=== PATIENT | male | born 1980 | race African-American/Black ===

== ENCOUNTER 2020-05-28 05:58 | Day surgery (SDC) | payer OTHER ==
[2020-05-26 15:35] VITALS: BMI 31.1
[2020-05-28] MEDS ORDERED: DEXAMETHASONE SOD PHOSPHATE/PF 10 MG/ML SDV ONE (06:50)
[2020-05-28] MEDS ORDERED: MIDAZOLAM HCL 2 MG/2 ML SINGLE DOSE VIAL ONE ×3 (06:50→08:34)
[2020-05-28] MEDS ORDERED: ROPIVACAINE HCL 0.5% 30ML VIAL ONE (06:50)
[2020-05-28] MEDS ORDERED: PROPOFOL 20 ML ONE ×4 (06:59→07:51)
[2020-05-28] MEDS ORDERED: BUPIVACAINE HCL/PF 0.25% (2.5MG/ML) 10 ML VIAL ONE (07:29)
[2020-05-28] MEDS ORDERED: EPINEPHrine 1:1,000 1 MG/1 ML - 30ML VIAL (INJECTION) ONE (07:29)
[2020-05-28] MEDS ORDERED: ceFAZolin SODIUM 1 GM VIAL ONE (08:10)
[2020-05-28] MEDS ORDERED: DEXAMETHASONE SOD PHOSPHATE 4 MG/1 ML VIAL ONE (09:14)
[2020-05-28] MEDS ORDERED: ONDANSETRON 4 MG/2 ML VIAL ONE (09:14)
[2020-05-28] MEDS ORDERED: ONDANSETRON 4 MG/2 ML VIAL IVPUSH PRN (10:59)
[2020-05-28] MEDS ORDERED: oxyCODONE HCL 5 MG TABLET PO PRN (10:59)
[2020-05-28] MEDS ORDERED: LACTATED RINGERS SOLUTION 1,000 ML IV SCH (11:00)
[2020-05-28] MEDS ORDERED: ACETAMINOPHEN 325 MG TABLET (FP) PO PRN (11:06)
[2020-05-28] MEDS ORDERED: FAMOTIDINE 20 MG TABLET PO ONE (15:15)
[2020-05-28 15:42] VITALS: BP 113/80; PULSE 80; TEMP 97.6
== END 2020-05-28 15:43 | disposition home or self-care (01) ==
LOC: FASU 05:58
PROVIDERS: ATTEND Orthopaedic Surgery
PROC: 0RBJ4ZZ Excision of Right Shoulder Joint, Percutaneous Endoscopic Approach (ICD-10-PCS; principal; 2020-05-28 08:50)
DX: M25.312 Other instability, left shoulder (principal); S43.432A Superior glenoid labrum lesion of left shoulder, initial encounter; X58.XXXA Exposure to other specified factors, initial encounter; Y93.9 Activity, unspecified; M75.52 Bursitis of left shoulder
CPT/HCPCS: 94760

== ENCOUNTER 2020-10-29 06:02 | Day surgery (SDC) | payer OTHER ==
[2020-10-21 13:30] VITALS: BMI 31.1
[~2020-10-29 06:02] MED LIST: BUPIVACAINE HCL/PF 0.25% (2.5MG/ML) 10 ML VIAL IJ ONE
[2020-10-29] MEDS ORDERED: oxyCODONE HCL 5 MG TABLET PO PRN (07:11)
[2020-10-29] MEDS ORDERED: BUPIVACAINE HCL/PF 0.25% (2.5MG/ML) 10 ML VIAL ONE (07:14)
[2020-10-29] MEDS ORDERED: LIDOCAINE HCL 2% 100 MG/5 ML DISP.SYRIN ONE (07:14)
[2020-10-29] MEDS ORDERED: MIDAZOLAM HCL 2 MG/2 ML SINGLE DOSE VIAL ONE (07:15)
[2020-10-29] MEDS ORDERED: PROPOFOL 20 ML ONE (07:15)
[2020-10-29] MEDS ORDERED: ceFAZolin SODIUM 1 GM VIAL ONE (07:43)
[2020-10-29] MEDS ORDERED: DEXAMETHASONE SOD PHOSPHATE 4 MG/1 ML VIAL ONE (07:43)
[2020-10-29] MEDS ORDERED: ONDANSETRON 4 MG/2 ML VIAL ONE (07:43)
[2020-10-29] MEDS ORDERED: KETOROLAC TROMETHAMINE 30 MG/1 ML VIAL ONE (08:13)
[2020-10-29] MEDS ORDERED: BUPIVACAINE HCL/PF 0.25% (2.5MG/ML) 10 ML VIAL IJ ONE (08:41)
[2020-10-29] MEDS ORDERED: ONDANSETRON 4 MG/2 ML VIAL IVPUSH PRN (08:48)
[2020-10-29] MEDS ORDERED: LACTATED RINGERS SOLUTION 1,000 ML IV SCH (09:00)
[2020-10-29] MEDS ORDERED: oxyCODONE HCL 5 MG TABLET ONE (09:51)
[2020-10-29 09:58] VITALS: TEMP 97.8
[2020-10-29] MEDS ORDERED: MAG HYDROX/AL HYDROX/SIMETH 30 ML UNIT-DOSE CUP ONE (11:04)
[2020-10-29] MEDS ORDERED: MAG HYDROX/AL HYDROX/SIMETH 30 ML UNIT-DOSE CUP PO ONE (11:19)
[2020-10-29 11:43] VITALS: BP 133/76; PULSE 66
== END 2020-10-29 11:45 | disposition home or self-care (01) ==
LOC: FASU 06:02
PROVIDERS: ATTEND Orthopaedic Surgery
PROC: 01N40ZZ Release Ulnar Nerve, Open Approach (ICD-10-PCS; principal; 2020-10-29 07:54)
DX: G56.22 Lesion of ulnar nerve, left upper limb (principal)
CPT/HCPCS: 94760

== ENCOUNTER 2021-04-22 04:31 | Day surgery (SDC) | payer OTHER ==
[2021-04-14 08:48] VITALS: BMI 31.1
[2021-04-22] MEDS ORDERED: BUPIVACAINE HCL/PF 0.75% 10 ML VIAL NR ONE (11:22)
[2021-04-22] MEDS ORDERED: IOHEXOL 180 MG/1 ML ML IJ ONE (11:22)
[2021-04-22] MEDS ORDERED: LIDOCAINE HCL 1% PRESERVATIVE FREE - 30ML VIAL IJ ONE (11:22)
[2021-04-22 12:02] VITALS: BP 115/72; PULSE 70; TEMP 98.1
== END 2021-04-22 11:58 | disposition home or self-care (01) ==
LOC: JASU-SURG 04:31
PROVIDERS: ATTEND Pain Medicine Pain Medicine
PROC: BR16YZZ Fluoroscopy of Lumbar Facet Joint(s) using Other Contrast (ICD-10-PCS; 2021-04-22)
PROC: 3E0T3BZ Introduction of Anesthetic Agent into Peripheral Nerves and Plexi, Percutaneous Approach (ICD-10-PCS; principal; 2021-04-22 09:45)
DX: M47.816 Spondylosis without myelopathy or radiculopathy, lumbar region (principal)
CPT/HCPCS: 76000-TC-FY